=== PATIENT | male | born 1970 | race Caucasian/White ===

== ENCOUNTER 2021-01-01 12:14 | Emergency (ER) | payer MEDICAID ==
[~2021-01-01] VITALS: Ht 177.8 cm; Wt 72.7 kg
[~2021-01-01 12:14] MED LIST: ALLEGRA30 MG OR; CEPHALEXIN500 MG OR; CHANTIX0.5 MG OR; NAPROSYN500 MG PO; NASONEX50 MCG/AC
[2021-01-01] MEDS ORDERED: ADVAIR DISK1 INH (13:31)
[2021-01-01] MEDS ORDERED: ZYRTEC10 MG PO (13:31)
[2021-01-01] MEDS ORDERED: FLEXERIL5 MG PO (13:32)
[2021-01-01] MEDS ORDERED: PERCOCET1 TA2 PO (13:33)
[2021-01-01 13:35] LABS: HEMATOCRIT 41.2 % (39.0-50.0); HEMOGLOBIN 13.8 g/dl (14.0-18.0); IMMATURE GRANULOCYTES 0.4 % (0.0-5.0); MEAN CELL VOLUME 93.4 fL CALC (80.0-100.0); MEAN CORPUSCULAR HGB 31.3 pG CALC (26.0-32.0); MEAN CORPUSCULAR HGB CONC 33.5 g/dL CAL (32.0-36.0); NEUT# 5.58 thou/uL (1.82-7.42); RED BLOOD COUNT 4.41 mill/uL (4.70-6.10); RED CELL DISTRI WIDTH 13.2 % (11.5-15.5)
[2021-01-01 13:46] LABS: ALBUMIN 4.8 g/dL (3.2-5.0); ALKALINE PHOSPHATASE 110 u/l (38-126); ANION GAP 14 (6-22 (CALC)); BILIRUBIN, TOTAL 0.6 mg/dL (0.0-1.4); BUN 22 mg/dL (9-20); BUN/CREATININE RATIO 25 (12-20 (CALC)); CARBON DIOXIDE 26 mmol/l (22-30); CHLORIDE 104 mmol/l (95-108); CREATININE 0.9 mg/dL (0.7-1.3); ETHYL ALCOHOL 0 mg/dl (0-30); GFR > 60 ML/MIN (>=60 (CALC)); GFR FOR AFR.AMER. > 60 ML/MIN (>=60 (CALC)); LIPASE 67 u/l (23-300); SGOT/AST 41 u/l (17-59); SODIUM 139 mmol/l (137-146)
[2021-01-01 13:54] LABS: INTERNATIONAL NORMALIZED RATIO 1.1 RATIO (0.7-1.3); PROTHROMBIN TIME 10.8 SECONDS (9.0-12.5)
[2021-01-01 16:07] LABS: URINE BILIRUBIN - DIPSTICK NEGATIVE (NEGATIVE); URINE BLOOD DIPSTICK NEGATIVE (NEGATIVE); URINE COLOR YELLOW; URINE GLUCOSE - DIPSTICK NEGATIVE (NEGATIVE); URINE KETONE NEGATIVE (NEGATIVE); URINE LEUK ESTERASE NEGATIVE (NEGATIVE); URINE NITRITE - DIPSTICK NEGATIVE (Negative); URINE PROTEIN - DIPSTICK NEGATIVE (NEG-TRACE); URINE SPECIFIC GRAVITY 1.025; URINE UROBILINOGEN - DIPSTICK 0.2 E.U./dL (0.2)
[2021-01-01] MEDS ORDERED: CORTISPORIN OTI10 ML AS (16:23)
[2021-01-01 16:38] VITALS: BP 140/76
== END 2021-01-01 16:55 | disposition home or self-care (01) ==
LOC: ED 12:14
DX: H93.13 Tinnitus, bilateral (principal); H60.92 Unspecified otitis externa, left ear; F17.200 Nicotine dependence, unspecified, uncomplicated
CPT/HCPCS: Q9967

== ENCOUNTER 2021-01-04 15:51 | Emergency (ER) | payer MEDICAID ==
[~2021-01-04] VITALS: Ht 177.8 cm; Wt 75.0 kg
[~2021-01-04 15:51] MED LIST changes: +ADVAIR DISK1 INH; +CORTISPORIN OTI10 ML AS; +FLEXERIL5 MG PO; +PERCOCET1 TA2 PO; +ZYRTEC10 MG PO
[2021-01-04 17:55] LABS: HEMATOCRIT 43.4 % (39.0-50.0); HEMOGLOBIN 14.2 g/dl (14.0-18.0); IMMATURE GRANULOCYTES 0.4 % (0.0-5.0); MEAN CELL VOLUME 93.9 fL CALC (80.0-100.0); MEAN CORPUSCULAR HGB 30.7 pG CALC (26.0-32.0); MEAN CORPUSCULAR HGB CONC 32.7 g/dL CAL (32.0-36.0); NEUT# 5.2 thou/uL (1.82-7.42); RED BLOOD COUNT 4.62 mill/uL (4.70-6.10)
[2021-01-04 18:13] LABS: ANION GAP 12 (6-22 (CALC)); BUN 19 mg/dL (9-20); BUN/CREATININE RATIO 26 (12-20 (CALC)); CARBON DIOXIDE 27 mmol/l (22-30); CHLORIDE 104 mmol/l (95-108); CREATININE 0.8 mg/dL (0.7-1.3); GFR > 60 ML/MIN (>=60 (CALC)); GFR FOR AFR.AMER. > 60 ML/MIN (>=60 (CALC)); SODIUM 138 mmol/l (137-146)
[2021-01-04] MEDS ORDERED: VISTARIL 50MG C50 M1 PO (18:37)
[2021-01-04] MEDS ORDERED: EPIPEN 2-P0.3 MG/0.3 IM (18:37)
[2021-01-04 18:58] VITALS: BP 131/80
== END 2021-01-04 18:46 | disposition home or self-care (01) ==
LOC: ED 15:51
PROVIDERS: Family Medicine
DX: F41.9 Anxiety disorder, unspecified (principal); H93.13 Tinnitus, bilateral; T16.1XXA Foreign body in right ear, initial encounter; F17.200 Nicotine dependence, unspecified, uncomplicated; X58.XXXA Exposure to other specified factors, initial encounter

== ENCOUNTER 2021-03-09 13:54 | Emergency (ER) | payer MEDICAID ==
[~2021-03-09 13:54] MED LIST changes: +EPIPEN 2-P0.3 MG/0.3 IM; +VISTARIL 50MG C50 M1 PO
[2021-03-09] MEDS ORDERED: PERCOCET 10/31 COMBO PO (14:37)
[2021-03-09 14:42] VITALS: BP 130/78
== END 2021-03-09 14:45 | disposition home or self-care (01) ==
LOC: ED 13:54
DX: G89.29 Other chronic pain (principal); M54.5 Low back pain; M54.2 Cervicalgia; F17.210 Nicotine dependence, cigarettes, uncomplicated

== ENCOUNTER 2021-05-10 20:24 | Emergency (ER) | payer OTHER ==
[~2021-05-10] VITALS: Ht 177.8 cm; Wt 82.0 kg
[~2021-05-10 20:24] MED LIST changes: +PERCOCET 10/31 COMBO PO
[2021-05-10] MEDS ORDERED: ATORVASTATIN CA20 MG PO (20:48)
[2021-05-10] MEDS ORDERED: ASPIRIN ADULT L81 M2 PO (20:48)
[2021-05-10] MEDS ORDERED: DEBROX6.5 % AD (20:50)
[2021-05-10] MEDS ORDERED: CVS FLUTICASON50 MCG IN (20:51)
[2021-05-10] MEDS ORDERED: GABAPENTIN300 M2 PO (20:52)
[2021-05-10] MEDS ORDERED: HYDROXYZ PAM25 MG PO (20:54)
[2021-05-10] MEDS ORDERED: MELATONIN PO (20:56)
[2021-05-10] MEDS ORDERED: METHOCARBAMOL500 MG PO (20:56)
[2021-05-10] MEDS ORDERED: METOPROLOL SUCC50 MG PO (20:57)
[2021-05-10] MEDS ORDERED: OXYCODONE15 MG PO (20:58)
[2021-05-10] MEDS ORDERED: PANTOPRAZOLE SO40 M1 PO (21:00)
[2021-05-10] MEDS ORDERED: PROAIR DIG108 MCG/AC IN (21:02)
[2021-05-10] MEDS ORDERED: RISPERIDONE OD0.5 MG PO (21:03)
[2021-05-10] MEDS ORDERED: TAMSULOSIN0.4 MG PO (21:05)
[2021-05-10 21:21] VITALS: BP 136/83
== END 2021-05-10 21:40 | disposition home or self-care (01) ==
LOC: ED 20:24
DX: H73.891 Other specified disorders of tympanic membrane, right ear (principal); R00.0 Tachycardia, unspecified; F17.210 Nicotine dependence, cigarettes, uncomplicated; F17.290 Nicotine dependence, other tobacco product, uncomplicated

== ENCOUNTER 2021-09-19 11:58 | Emergency (ER) | payer MEDICAID ==
[~2021-09-19] VITALS: Ht 177.8 cm; Wt 77.2 kg
[~2021-09-19 11:58] MED LIST changes: +ASPIRIN ADULT L81 M2 PO; +ATORVASTATIN CA20 MG PO; +CVS FLUTICASON50 MCG IN; +DEBROX6.5 % AD; +GABAPENTIN300 M2 PO; +HYDROXYZ PAM25 MG PO; +MELATONIN PO; +METHOCARBAMOL500 MG PO; +METOPROLOL SUCC50 MG PO; +OXYCODONE15 MG PO; +PANTOPRAZOLE SO40 M1 PO; +PROAIR DIG108 MCG/AC IN; +RISPERIDONE OD0.5 MG PO; +TAMSULOSIN0.4 MG PO
== END 2021-09-19 14:45 | disposition home or self-care (01) ==
LOC: ED 11:58
DX: M54.50 Low back pain, unspecified (principal); M54.2 Cervicalgia; F17.200 Nicotine dependence, unspecified, uncomplicated

== ENCOUNTER 2022-07-15 05:27 | Emergency (ER) | payer MEDICAID ==
[~2022-07-15] VITALS: Ht 177.8 cm; Wt 68.2 kg
[2022-07-15 05:39] VITALS: BP 171/107
[2022-07-15 05:46] VITALS: BP 164/101
[2022-07-15 05:59] VITALS: BP 139/93
[2022-07-15 06:24] LABS: ALBUMIN 4.7 g/dL (3.2-5.0); ALKALINE PHOSPHATASE 100 u/l (38-126); ANION GAP 17 (6-22 (CALC)); BILIRUBIN, TOTAL 0.4 mg/dL (0.0-1.4); BUN 14 mg/dL (9-20); BUN/CREATININE RATIO 14 (12-20 (CALC)); CARBON DIOXIDE 24 mmol/l (22-30); CHLORIDE 106 mmol/l (95-108); ETHYL ALCOHOL 0 mg/dl (0-30); GFR FOR AFR.AMER. > 60 ML/MIN (>=60 (CALC)); GFR OTHER RACES > 60 ML/MIN (>=60 (CALC)); POTASSIUM 4.1 mmol/l (3.5-5.1); SGOT/AST 32 u/l (17-59); SODIUM 142 mmol/l (137-146); TOTAL PROTEIN 7.7 g/dL (6.3-8.2)
[2022-07-15 06:30] LABS: D-DIMER 0.6 mg/L (0.19-0.60)
[2022-07-15 06:35] LABS: MYOGLOBIN 49 ng/mL (0 - 121)
[2022-07-15 06:44] LABS: HEMATOCRIT 42.4 % (39.0-50.0); HEMOGLOBIN 13.9 g/dl (14.0-18.0); IMMATURE GRANULOCYTES 0.6 % (0.0-5.0); MEAN CELL VOLUME 96.1 fL CALC (80.0-100.0); MEAN CORPUSCULAR HGB 31.5 pG CALC (26.0-32.0); MEAN CORPUSCULAR HGB CONC 32.8 g/dL CAL (32.0-36.0); NEUT# 12.21 thou/uL (1.82-7.42); RED BLOOD COUNT 4.41 mill/uL (4.70-6.10); RED CELL DISTRI WIDTH 13.3 % (11.5-15.5)
[2022-07-15 06:47] LABS: ACT PARTIAL THROMBO TIME 22.5 SECONDS (20.0-32.5); INTERNATIONAL NORMALIZED RATIO 1.1 RATIO (0.7-1.3); PROTHROMBIN TIME 10.9 SECONDS (9.0-12.5)
[2022-07-15] MEDS ORDERED: VIBRAMYCIN100 M2 PO (06:56)
[2022-07-15] MEDS ORDERED: ADVAIR DISK1 IN (06:56)
[2022-07-15] MEDS ORDERED: PREDNISONE50 MG PO (06:56)
[2022-07-15 06:58] VITALS: BP 133/103
[2022-07-15 06:59] VITALS: BP 139/89
[2022-07-15 07:01] VITALS: BP 139/89
== END 2022-07-15 07:10 | disposition home or self-care (01) ==
LOC: ED 05:27
PROVIDERS: Family Medicine
DX: J44.1 Chronic obstructive pulmonary disease with (acute) exacerbation (principal); J44.0 Chronic obstructive pulmonary disease with (acute) lower respiratory infection; J40 Bronchitis, not specified as acute or chronic; F17.200 Nicotine dependence, unspecified, uncomplicated; Z20.822 Contact with and (suspected) exposure to COVID-19

== ENCOUNTER 2022-07-18 01:56 | Emergency (ER) | payer MEDICAID ==
[2022-07-18] VITALS (15 sets, daily range): BP systolic 127–190; BP diastolic 78–119
[~2022-07-18] VITALS: Ht 177.8 cm; Wt 71.6 kg
[~2022-07-18 01:56] MED LIST changes: +ADVAIR DISK1 IN; +PREDNISONE50 MG PO; +VIBRAMYCIN100 M2 PO
[2022-07-18 03:12] LABS: HEMATOCRIT 42.2 % (39.0-50.0); HEMOGLOBIN 13.9 g/dl (14.0-18.0); IMMATURE GRANULOCYTES 1.1 % (0.0-5.0); MEAN CORPUSCULAR HGB 31.3 pG CALC (26.0-32.0); MEAN CORPUSCULAR HGB CONC 32.9 g/dL CAL (32.0-36.0); NEUT# 6.44 thou/uL (1.82-7.42); RED BLOOD COUNT 4.44 mill/uL (4.70-6.10); RED CELL DISTRI WIDTH 13.2 % (11.5-15.5)
[2022-07-18 03:19] LABS: ALBUMIN 4.5 g/dL (3.2-5.0); ALKALINE PHOSPHATASE 86 u/l (38-126); ANION GAP 12 (6-22 (CALC)); BILIRUBIN, TOTAL 0.3 mg/dL (0.0-1.4); BUN 16 mg/dL (9-20); BUN/CREATININE RATIO 19 (12-20 (CALC)); CARBON DIOXIDE 26 mmol/l (22-30); CHLORIDE 108 mmol/l (95-108); CREATININE 0.8 mg/dL (0.7-1.3); GFR FOR AFR.AMER. > 60 ML/MIN (>=60 (CALC)); GFR OTHER RACES > 60 ML/MIN (>=60 (CALC)); POTASSIUM 3.5 mmol/l (3.5-5.1); SGOT/AST 30 u/l (17-59); SODIUM 143 mmol/l (137-146); TOTAL PROTEIN 7.7 g/dL (6.3-8.2)
[2022-07-18 03:31] LABS: MYOGLOBIN 25 ng/mL (0 - 121)
== END 2022-07-18 08:08 | disposition home or self-care (01) ==
LOC: ED 01:56
PROVIDERS: Emergency Medicine
DX: F41.9 Anxiety disorder, unspecified (principal); F11.10 Opioid abuse, uncomplicated; F19.10 Other psychoactive substance abuse, uncomplicated
CPT/HCPCS: J2060

== ENCOUNTER 2022-07-19 22:04 | Emergency (ER) | payer MEDICAID ==
[2022-07-19] VITALS (9 sets, daily range): BP systolic 129–164; BP diastolic 92–122
[~2022-07-19] VITALS: Ht 177.8 cm; Wt 71.8 kg
[2022-07-19 22:47] LABS: HEMOGLOBIN 13.6 g/dl (14.0-18.0); IMMATURE GRANULOCYTES 0.9 % (0.0-5.0); MEAN CELL VOLUME 92.6 fL CALC (80.0-100.0); MEAN CORPUSCULAR HGB 31.5 pG CALC (26.0-32.0); NEUT# 6.32 thou/uL (1.82-7.42); RED BLOOD COUNT 4.32 mill/uL (4.70-6.10)
[2022-07-19 23:06] LABS: ALBUMIN 4.3 g/dL (3.2-5.0); ALKALINE PHOSPHATASE 78 u/l (38-126); ANION GAP 13 (6-22 (CALC)); BILIRUBIN, TOTAL 0.4 mg/dL (0.0-1.4); BUN 12 mg/dL (9-20); BUN/CREATININE RATIO 17 (12-20 (CALC)); CARBON DIOXIDE 23 mmol/l (22-30); CHLORIDE 107 mmol/l (95-108); CREATININE 0.7 mg/dL (0.7-1.3); GFR FOR AFR.AMER. > 60 ML/MIN (>=60 (CALC)); GFR OTHER RACES > 60 ML/MIN (>=60 (CALC)); POTASSIUM 3.2 mmol/l (3.5-5.1); SGOT/AST 30 u/l (17-59); SODIUM 141 mmol/l (137-146)
[2022-07-19 23:18] LABS: MYOGLOBIN 41 ng/mL (0 - 121)
[2022-07-19 23:35] LABS: URINE BILIRUBIN - DIPSTICK NEGATIVE (NEGATIVE); URINE BLOOD DIPSTICK NEGATIVE (NEGATIVE); URINE COLOR YELLOW; URINE GLUCOSE - DIPSTICK NEGATIVE (NEGATIVE); URINE KETONE NEGATIVE (NEGATIVE); URINE LEUK ESTERASE NEGATIVE (NEGATIVE); URINE NITRITE - DIPSTICK NEGATIVE (Negative); URINE PROTEIN - DIPSTICK NEGATIVE (NEG-TRACE); URINE UROBILINOGEN - DIPSTICK 0.2 E.U./dL (0.2)
== END 2022-07-20 00:07 | disposition home or self-care (01) ==
LOC: ED 22:04
PROVIDERS: Emergency Medicine
DX: F41.9 Anxiety disorder, unspecified (principal); F19.10 Other psychoactive substance abuse, uncomplicated; J44.9 Chronic obstructive pulmonary disease, unspecified; F17.200 Nicotine dependence, unspecified, uncomplicated